=== PATIENT | male | born 1970 | race Caucasian/White ===

== ENCOUNTER 2021-04-02 19:21 | Emergency (ER) | payer BC, SELFPAY ==
--- NOTE | ~2021-04-02 | XR_ITS ---
EXAMINATION: XR chest 1V portable DATE: 04/02/2021 21:14 INDICATION: Shortness of breath. Left-sided chest pain. TECHNIQUE: frontal view of the chest was obtained. COMPARISON: None FINDINGS: The lungs are clear with no focal airspace opacities, pulmonary edema, pleural effusion or pneumothor ax. The cardiomediastinal silhouette is normal. Visualized bones and soft tissues are unremarkable. IMPRESSION: 1. No acute cardiopulmonary disease. Reviewed, dictated and finalized at location A. [employer]IES MANAGEMENT EXECUTIVE
--- NOTE | ~2021-04-02 | CT_ITS ---
EXAMINATION: CT abdomen pelvis w con DATE: 04/02/2021 21:38 INDICATION: Left sided abdominal pain TECHNIQUE: Computed tomography (CT) of the abdomen and pelvis was performed without intravenous contr ast. Automated exposure control and iterative reconstruction technique were employed. The dose-length product was 1475.34 mGy-cm. COMPARISON: 05/15/2008 FINDINGS: Lung bases are clear. Heart size is normal. No pericardial or pleural effusion. Small sliding-type hi atal hernia. Diffuse hepatic steatosis. Cholecystectomy clips at the gallbladder fossa. Spleen, pancr eas and bilateral adrenal glands are normal. 1 mm nonobstructing stone at a lower pole calyx of the r ight kidney. 12 mm left renal cyst. Bladder is normal. Small fat-containing right inguinal hernia. No free intraperitoneal gas or fluid. No pathologically enlarged abdominal or pelvic lymphadenopathy. M ild bilateral hip osteoarthritis. A couple right supra-acetabular bone islands. IMPRESSION: 1. 1 mm nonobstructing right renal stone. 2. Small sliding-type hiatal hernia. 3. Small fat-containing right inguinal hernia. Reviewed, dictated and finalized at location A. TIC WELDING OPERATOR
[2021-04-02 19:30] VITALS: BP 193/94; PULSE 79; RESP 16; TEMP 37.1; O2SAT 100
[2021-04-02 20:42] LABS: Basophils Percent Auto 0.4 % (0.2-1.2); Eosinophils Absolute Auto 0.1 K/mm3 (0-0.3); Hematocrit 40.5 % (42.0-52.0); Hemoglobin 13.9 g/dL (14.0-18.0); Immature Granulocyte Absolute 0.06 K/mm3 (0.00-0.031); Immature Granulocyte Percent A 0.5 % (0-0.5); Lymphocytes Absolute Auto 3.27 K/mm3 (0.9-3.2); Lymphocytes Percent Auto 29.7 % (18.3-44.2); Mean Corpuscular HGB Conc 34.3 g/dl (32-36); Mean Corpuscular Hemoglobin 30.9 pg (26-34); Mean Platelet Volume 9.4 fl (7.4-10.4); Monocytes Absolute Auto 1.2 K/mm3 (0.1-0.6); Monocytes Percent Auto 10.5 % (2.6-8.5); Neutrophils Absolute Auto 6.4 K/mm3 (1.3-6.7); Neutrophils Percent Auto 57.9 % (45.5-73.1); Platelet Count Result 223 k/mm3 (150-375); Red Cell Distribution Width 13.4 % (11.5-14.5)
[2021-04-02 21:03] VITALS: BP 170/90; PULSE 69; RESP 18; O2SAT 98
[2021-04-02 21:12] LABS: Alanine Aminotransferase 56 U/L (4-50); Alkaline Phosphatase 109 U/L (38-126); Anion Gap 5 mmol/L (8-16); Aspartate Amino Transferase 38 U/L (17-59); Bilirubin,Total 0.5 mg/dL (0.2-1.3); Blood Urea Nitrogen 18 mg/dL (9-20); Calcium 8.3 mg/dL (8.4-10.2); Carbon Dioxide 26 mmol/L (22-30); Chloride 104 mmol/L (98-107); Estimated CRCL calculation 110 ml/min; Estimated Glomerular Filt Rate > 60; Glucose 103 mg/dL (65-110); Lipase 138 U/L (23-300); Potassium 3.9 mmol/L (3.4-5.0); Sodium 135 mmol/L (137-145)
[2021-04-02 21:13] LABS: Add Urine Microscopic? YES; Appearance Urine Clear (Clear); Bilirubin Urine Negative (Negative); Blood Urine Negative (Negative); Color Urine Straw (Yellow); Glucose Urine UA Negative (Negative); Ketones Urine Negative (Negative); Leukocyte Esterase Ur Negative LEU/UL (Negative); Nitrate Urine Negative (Negative); Protein Urine Negative (Negative); Specific Grav Ur 1.008 (1.001-1.035); Squamous Epithelial Cell Urine Rare /hpf (Few); WBC Urine 0-3 /hpf
--- NOTE | 2021-04-02 21:17 | ED.GENADULT ---
HPI - General Adult General Chief complaint: Shortness of Breath/Dyspnea Stated complaint: SOB Time Seen by Provider: 04/02/21 21:03 Source: RN notes reviewed History of Present Illness HPI narrative: Patient presents emergency department from home for left-sided abdominal pain. Patient states pain began approximately 9 AM this morning pain is located left side of the abdomen does not radiate described as sharp and stabbing. States that the pain hurts worse when he takes a deep breath makes him feel short of breath he denies any fevers or chills nausea vomiting diarrhea or any other symptoms states he not take any pain medication today Related Data Allergies Allergy/AdvReac Type Severity Reaction Status Date / Time No Known Allergies Allergy Mild Verified 04/02/21 19:34 Review of Systems Review of Systems: Gen.: Denies fevers or chills ENT: Denies congestion Respiratory: Ports feeling short of breath secondary to abdominal pain CV: Denies chest pain or palpitations GI: See HPI denies burning, urgency, frequency or hematuria Musculoskeletal: Denies back pain or muscle pain Neuro: Denies numbness, tingling, weakness or focal weakness Skin: Denies rash Except as documented, all other systems reviewed and negative [facility] Past Medical History Medical History (Updated 04/03/21 @ 00:08 by Blaise Feliz DO) Patient denies significant medical history Social History Social History (Updated 04/02/21 @ 21:18 by Blaise Feliz DO) Smoking status: Never smoker Exam Narrative: APPEARANCE: No acute distress, nontoxic, resting in bed HEENT: Normocephalic, atraumatic, OMM RESPIRATORY: No respiratory distress, clear to auscultation bilaterally with no rhonchi wheezing or rales CARDIOVASCULAR: RRR s murmur ABDOMINAL: Soft nondistended tender palpation left upper quadrant left lower quadrant no tenderness right upper quadrant right lower quadrant no rebound or guarding MUSCULOSKELETAl: Moves all extremities. No clubbing, cyanosis or edema. NEURO: Awake and alert. Following commands, speech normal, no focal deficits SKIN:: Warm, dry. Normal Color PSYCHIATRIC: Normal affect/mood Course Course Emergency Course: Patient states pain is improved with Toradol and then GI cocktail states he is on medication for GERD [id number] Patient states that they are feeling much better at this time. States abdominal pain has improved repeat abdominal exam shows the patient's abdomen to be soft with no surgical abdomen present. Discussed with patient results of workup and diagnosis. Discussed need for follow-up with primary care physician, reasons to return to the emergency department in proper use of medication. Patient understands and agrees to current treatment plan Vital Signs Vital signs: Vital Signs Temperature 98.8 F 04/02/21 19:30 Pulse Rate 79 04/02/21 19:30 Respiratory Rate 16 04/02/21 19:30 Blood Pressure 193/94 H 04/02/21 19:30 Pulse Oximetry 100 04/02/21 19:30 Temperature 98.8 F 04/02/21 19:30 Pulse Rate 65 04/02/21 23:35 Respiratory Rate 18 04/02/21 23:35 Blood Pressure 148/89 H 04/02/21 23:35 Pulse Oximetry 98 04/02/21 23:35 Medical Decision Making MDM Narrative Medical decision making narrative: Patient's abdomen is soft without significant pain or signs of surgical abdomen on serial exams. Lab and x-ray evaluations are reviewed and patient is felt to be a reasonable candidate for outpatient management. Patient was instructed as to limitations of x-ray and laboratory evaluation and encouraged to return to ED or primary physician for repeat exam in 12 hours if continued or worsening pain. The patient noted shortness of breath with his abdominal pain seen feel he can take a deep breath because of the pain EKG is within normal limits with negative troponin pain is been ongoing since 9 AM this morning D-dimer is negative chest x-ray is clear believe this is likely GI source as the patient benson
[2021-04-02] MEDS: KETOROLAC 30 MG/ML VIAL (*BKC) IV PUSH (21:38)
[2021-04-02] MEDS: SODIUM CHLORIDE 0.9% IV 1,000 ML 999 ML IV CONT (21:39)
--- NOTE | 2021-04-02 22:11 | ECG_ITS ---
Measurements Intervals Leroy Rate: 64 P: 27 NV: 216 QRS: 0 QRSD: 117 T: 48 QT: 402 QTc: 417 Interpretive Statements SINUS RHYTHM WITH FIRST DEGREE AV BLOCK INTRAVENTRICULAR CONDUCTION DELAY ABNORMAL ECG Electronically Signed On 04-03-2021 6:20:56 [employer] by Alexi Miller D.O.
[2021-04-02 22:39] LABS: D Dimer 0.36 ug/mL (<0.48)
--- NOTE | 2021-04-02 23:04 | PC.NURSE ---
Called lab and spoke to Ariella to add on trop Baseline
[2021-04-02 23:35] VITALS: BP 148/89; PULSE 65; RESP 18; O2SAT 98
--- NOTE | 2021-04-02 23:43 | PC.NURSE ---
LAB NOTIFIED TO ADD STAT TROPONIN TO GREEN TOP ALREADY DRAWN
[2021-04-03 00:04] LABS: Troponin I < 0.012 ng/mL (0.000-0.034)
[2021-04-03 00:30] VITALS: BP 151/98; PULSE 66; RESP 18; O2SAT 97
== END 2021-04-03 00:31 | disposition home or self-care (01) ==
PROVIDERS: Emergency Medicine; Emergency Provider Emergency Medicine; PCP Internal Medicine
DX: R10.12 Left upper quadrant pain (principal); K44.9 Diaphragmatic hernia without obstruction or gangrene; K40.90 Unilateral inguinal hernia, without obstruction or gangrene, not specified as recurrent; I44.0 Atrioventricular block, first degree; I45.9 Conduction disorder, unspecified
CPT/HCPCS: 36415; 71045; 74177; 80053; 81001; 83690; 84484; 85025; 85380; 93005; 96361; 96374; 99284; A9270; J1885; J7030; Q9967